=== PATIENT | male | born 1955 | race American Indian/Alaskan Native ===

== ENCOUNTER 2017-09-30 10:22 | Emergency (ER) | payer SELFPAY ==
[2017-09-30 10:59] VITALS: BP 154/77
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
--- NOTE | 2017-09-30 14:20 | XRay Report ---
RIGHT SHOULDER, 3 VIEWS: HISTORY: Acute on chronic right shoulder pain. No comparison. Normal bone mineralization. 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 This probably represents chronic sequela of previous trauma. There is no evidence for acute fracture, dislocation or ligamentous injury. The soft tissues are unremarkable. IMPRESSION: Chronic distal right clavicle deformity. No acute process is identified.
--- NOTE | 2017-09-30 14:21 | XRay Report ---
RIGHT WRIST, 3 VIEWS: History: wrist pain, injury. Routine views demonstrate the carpal bones to be well mineralized with well preserved bony mineralization and interosseous joint spaces. The carpal and adjacent articular bones have normal contours. The surrounding soft tissues are unremarkable. IMPRESSION: Unremarkable right wrist.
== END 2017-09-30 13:45 | disposition home or self-care (01) ==
LOC: ED 10:22
DX: M25.511 Pain in right shoulder (principal); G89.29 Other chronic pain; G56.01 Carpal tunnel syndrome, right upper limb; Z88.5 Allergy status to narcotic agent
CPT/HCPCS: 99283

== ENCOUNTER 2018-05-03 10:34 | Emergency (ER) | payer MEDICARE ==
[2018-05-03 10:57] VITALS: BP 135/90
--- NOTE | 2018-05-03 11:42 | Emergency Department Report ---
ED General Adult HPI - General Chief complaint: Abdominal Pain Stated complaint: BACK PAIN/BLOOD IN STOOL Time Seen by Provider: 05/03/18 11:34 Source: patient Mode of arrival: Ambulatory Limitations: No Limitations - History of Present Illness Initial comments: Patient is a 62-year-old male who is presenting with almost a month and a half of bright red blood per rectum. Patient states he occasionally does have some straining with bowel movements and has some hard stool when he initiates of bowel movements is followed by soft fecal matter. Patient denies any nausea vomiting fevers chills. Patient's states that mostly bloody seizes when wiping. Patient denies feeling any areas of swelling at the rectum. Patient denies chest pain shortness of breath fevers chills at this time. Patient also has some complaints of some low back pain. Severity scale (0 -10): 9 - Related Data Previous Rx's Medication Instructions Recorded Last Taken Type Cyclobenzaprine [Flexeril] 10 mg PO TID PRN #12 tablet 09/30/17 Unknown Rx Naproxen [Naprosyn TAB] 375 mg PO BID PRN #20 tablet 09/30/17 Unknown Rx Hydrocortisone [Anucort-HC SUPPOS] 25 mg RC BID #10 supp.rect 05/03/18 Unknown Rx Pantoprazole [Protonix TAB] 20 mg PO QDAY #30 tablet. 05/03/18 Unknown Rx Allergies Allergy/AdvReac Type Severity Reaction Status Date / Time hydromorphone [From Dilaudid] Allergy Rash Verified 09/30/17 10:55 ED Review of Systems ROS: Stated complaint: BACK PAIN/BLOOD IN STOOL Other details as noted in HPI Comment: All other systems reviewed and negative Skin: lesions (patient is a skin tag on the left back that he states is irritating) ED Past Medical Hx - Past Medical History Previous Medical History?: No - Surgical History Additional Surgical History: Right rotator cuff - Social History Smoking Status: Never Smoker Substance Use Type: None - Medications Home Medications: Home Medications Medication Instructions Recorded Confirmed Last Taken Type Cyclobenzaprine [Flexeril] 10 mg PO TID PRN #12 tablet 09/30/17 Unknown Rx Naproxen [Naprosyn TAB] 375 mg PO BID PRN #20 tablet 09/30/17 Unknown Rx Hydrocortisone [Anucort-HC SUPPOS] 25 mg RC BID #10 supp.rect 05/03/18 Unknown Rx Pantoprazole [Protonix TAB] 20 mg PO QDAY #30 tablet.dr 05/03/18 Unknown Rx ED Physical Exam - General Limitations: No Limitations General appearance: alert, in no apparent distress - Head Head exam: Present: atraumatic, normocephalic - Eye Eye exam: Present: normal appearance - ENT ENT exam: Present: mucous membranes moist - Neck Neck exam: Present: normal inspection - Respiratory Respiratory exam: Present: normal lung sounds bilaterally. Absent: respiratory distress, wheezes, rales, rhonchi - Cardiovascular Cardiovascular Exam: Present: regular rate, normal rhythm. Absent: systolic murmur, diastolic murmur, rubs, gallop - GI/Abdominal GI/Abdominal exam: Present: soft, normal bowel sounds. Absent: distended, tenderness, guarding, rebound, rigid - Rectal Rectal exam: Present: deferred - Extremities Exam Extremities exam: Present: normal inspection - Back Exam Back exam: Present: normal inspection - Neurological Exam Neurological exam: Present: alert, oriented X3 - Psychiatric Psychiatric exam: Present: normal affect, normal mood - Skin Skin exam: Present: warm, dry, intact, normal color. Absent: rash ED Course Vital Signs 05/03/18 10:55 Temperature 97.8 F Pulse Rate 70 Respiratory 16 Rate Blood Pressure 135/90 O2 Sat by Pulse 97 Oximetry ED Medical Decision Making - Lab Data Result diagrams: 05/03/18 12:55 05/03/18 12:55 - Radiology Data [facility] [address] [place] [address] Cat Scan Report Signed Patient: LINDSAY HARDEN JR MR#: [id number] : 1955 Acct:[id number] Age/Sex: 62 / M ADM Date: 05/03/18 Loc: ED Attending Dr: Ordering Physician: ADRIANA ABURTO MD Date of Service: 05/03/18 Procedure(s): CT abdomen pelvis w con Accession Number(s): [id number] cc: ADRIANA ABURTO MD CT ABDOMEN PELVIS WITH CONTRAST: HISTORY: abdominal pain. COMPARISON: none. TECHNIQUE: Helical CT in 1.25mm intervals following IV contrast. Sagittal and coronal reconstructions. FINDINGS: Lung bases: The visualized lung bases are adequately aerated. Trace bilateral pleural effusions are identified. Normal heart size. Liver: There is moderate diffuse fatty infiltration throughout the liver. No enlargement, surface nodularity or mass. Biliary system: Cholecystectomy changes. Pancreas: Normal. Spleen: Normal. Kidneys/ureters/bladder: There is scattered simple renal cysts in both kidneys. Focal cortical scarring is noted at the superior pole of the left kidney. The ureters and bladder are unremarkable.. Adrenal glands: Normal. Aorta: Normal. Intestines: Within normal limits given no oral contrast was administered. Appendix: Normal. Pelvic viscera: Normal. Ascites: None. Adenopathy: None. Musculoskeletal: The bony structures are intact. Bilateral inguinal hernia repair changes are suspected. No recurrent hernia is visualized. IMPRESSION: No acute process. Fatty infiltration of the liver. Scattered simple renal cysts. Cholecystectomy. Bilateral inguinal hernia repair appears intact. Trace bilateral pleural effusions of uncertain etiology. Transcribed By: TTR Dictated By: ULISSES POWER JR, MD Electronically Authenticated By: ULISSES POWER JR, MD Signed Date/Time: 05/03/18 1750 - Medical Decision Making Patient's hemoglobin is within normal limits. CT scan shows no obvious source his GI bleed. Patient may have internal hemorrhoids but also could have some minor gastritis or ulcers that is not seen on the CT. Patient safer disco home with follow-up with gastroenterology. Critical care attestation.: If time is entered above; I have spent that time in minutes in the direct care of this critically ill patient, excluding procedure time. ED Disposition Clinical Impression: GI bleed Qualifiers: GI bleed type/associated pathology: unspecified gastrointestinal hemorrhage t ype Qualified Code(s): K92.2 - Gastrointestinal hemorrhage, unspecified Disposition: - TO HOME OR SELFCARE Is pt being admited?: No Does the pt Need Aspirin: No Condition: Stable Instructions: Gastrointestinal Bleeding (ED) Referrals: PARVIZ ROBERTSON MD [Staff Physician] - 3-5 Days Time of Disposition: 14:07
[2018-05-03 13:09] LABS: Eosinophils # (Auto) 0.2 K/mm3 (0.0-0.4); Eosinophils % (Auto) 4.7 % (0.0-4.3); Hematocrit 45.7 % (35.5-45.6); Hemoglobin 15.3 gm/dl (11.8-15.2); Lymphocytes % (Auto) 30.3 % (13.4-35.0); Mean Corpuscular HGB Conc 33 % (32-34); Mean Corpuscular Volume 82 fl (84-94); Monocytes # (Auto) 0.3 K/mm3 (0.0-0.8); Monocytes % (Auto) 10.4 % (0.0-7.3); Platelet Count 208 K/mm3 (140-440); Red Cell Distribution Width 13.5 % (13.2-15.2)
[2018-05-03 13:19] LABS: INR 0.95 (0.87-1.13)
[2018-05-03 13:28] LABS: BUN/Creatinine Ratio 9; Blood Urea Nitrogen 7 mg/dL (9-20); Calcium 9.1 mg/dL (8.4-10.2); Hemolysis Index 67
--- NOTE | 2018-05-03 13:55 | Cat Scan Report ---
CT ABDOMEN PELVIS WITH CONTRAST: HISTORY: abdominal pain. COMPARISON: none. TECHNIQUE: Helical CT in 1.25mm intervals following IV contrast. Sagittal and coronal reconstructions. FINDINGS: Lung bases: The visualized lung bases are adequately aerated. Trace bilateral pleural effusions are identified. Normal heart size. Liver: There is moderate diffuse fatty infiltration throughout the liver. No enlargement, surface nodularity or mass. Biliary system: Cholecystectomy changes. Pancreas: Normal. Spleen: Normal. Kidneys/ureters/bladder: There is scattered simple renal cysts in both kidneys. Focal cortical scarring is noted at the superior pole of the left kidney. The ureters and bladder are unremarkable.. Adrenal glands: Normal. Aorta: Normal. Intestines: Within normal limits given no oral contrast was administered. Appendix: Normal. Pelvic viscera: Normal. Ascites: None. Adenopathy: None. Musculoskeletal: The bony structures are intact. Bilateral inguinal hernia repair changes are suspected. No recurrent hernia is visualized. IMPRESSION: No acute process. Fatty infiltration of the liver. Scattered simple renal cysts. Cholecystectomy. Bilateral inguinal hernia repair appears intact. Trace bilateral pleural effusions of uncertain etiology.
== END 2018-05-03 14:19 | disposition home or self-care (01) ==
LOC: ED 10:34
DX: K92.2 Gastrointestinal hemorrhage, unspecified (principal); M54.5 Low back pain; Z88.6 Allergy status to analgesic agent
CPT/HCPCS: 36415; 74177; 80048; 85025; 85610; 85730; 99284; Q9967